=== PATIENT | female | born 1935 | race Native Hawaiian/Other Pacific Islander ===

== ENCOUNTER 2016-08-15 10:20 | Outpatient (CLI) | payer OTHER ==
[~2016-08-15 10:20] MED LIST: ALLO300T23 PO; LEVO0.1224 PO; LISI10TA11 PO; NIACIN ER1000 MG PO; TEMA15CA19 PO; TRIA75TA61 PO; XARELTO15 MG PO
== END 2016-08-15 20:09 | disposition home or self-care (01) ==
LOC: RAD 10:20
DX: M81.0 Age-related osteoporosis without current pathological fracture (principal)

== ENCOUNTER 2017-02-21 13:30 | Outpatient (CLI) | payer OTHER | END 2017-02-21 14:30 | disposition home or self-care (01) | LOC: RAD 13:30 | DX: M79.671 Pain in right foot (principal) ==

== ENCOUNTER 2017-10-03 10:30 | Outpatient (CLI) | payer OTHER | END 2017-10-03 22:55 | disposition home or self-care (01) | LOC: RAD 10:30 | DX: M25.571 Pain in right ankle and joints of right foot (principal) ==

== ENCOUNTER 2017-12-31 07:53 | Outpatient (CLI) | payer OTHER ==
[2017-12-31] MEDS ORDERED: ZOCOR80 MG OR (08:27)
[2017-12-31] MEDS ORDERED: AMLODIPINE BESYLATE PO (08:27)
[2017-12-31] MEDS ORDERED: TRAM50TA PO (08:29)
[2017-12-31] MEDS ORDERED: LISI5TAB10 PO (08:30)
[2017-12-31] MEDS ORDERED: NIACIN ER500 M1 PO (08:31)
[2017-12-31] MEDS ORDERED: DICL50TA PO (08:31)
[2017-12-31] MEDS ORDERED: LAMOTRIGINE5 MG PO (08:32)
[2017-12-31] MEDS ORDERED: UNITH DIRECT100 MCG PO (08:33)
[2017-12-31] MEDS ORDERED: WARF2TAB7 PO (08:33)
[2017-12-31] MEDS ORDERED: WARF3TAB12 PO (08:34)
[2017-12-31] MEDS ORDERED: VITAMIN D5000 UNIT OR (08:34)
== END 2017-12-31 08:06 | disposition short-term general hospital (02) ==
LOC: AMB 07:53
DX: M79.671 Pain in right foot (principal)
CPT/HCPCS: A0425; A0427

== ENCOUNTER 2017-12-31 08:16 | Emergency (ER) | payer OTHER ==
[~2017-12-31] VITALS: Ht 167.6 cm; Wt 74.8 kg
[2017-12-31 08:05] VITALS: TEMP 99.5
[2017-12-31] MEDS ORDERED: AMLODIPINE BESYLATE PO (08:27)
[2017-12-31] MEDS ORDERED: ZOCOR80 MG OR (08:27)
[2017-12-31] MEDS ORDERED: TRAM50TA PO (08:29)
[2017-12-31] MEDS ORDERED: LISI5TAB10 PO (08:30)
[2017-12-31] MEDS ORDERED: NIACIN ER500 M1 PO (08:31)
[2017-12-31] MEDS ORDERED: DICL50TA PO (08:31)
[2017-12-31] MEDS ORDERED: LAMOTRIGINE5 MG PO (08:32)
[2017-12-31] MEDS ORDERED: WARF2TAB7 PO (08:33)
[2017-12-31] MEDS ORDERED: UNITH DIRECT100 MCG PO (08:33)
[2017-12-31 08:34] LABS: PLATELET COUNT 225 K/uL (152-353)
[2017-12-31] MEDS ORDERED: VITAMIN D5000 UNIT OR (08:34)
[2017-12-31] MEDS ORDERED: WARF3TAB12 PO (08:34)
[2017-12-31 08:42] LABS: POTASSIUM 3.5 mmol/L (3.6-5.2)
[2017-12-31 09:45] VITALS: BP 143/74
== END 2017-12-31 09:45 | disposition home or self-care (01) ==
LOC: ED 08:16
DX: S82.301D Unspecified fracture of lower end of right tibia, subsequent encounter for closed fracture with routine healing (principal); S82.831D Other fracture of upper and lower end of right fibula, subsequent encounter for closed fracture with routine healing
CPT/HCPCS: 80053; 84550; 85027; 96374; 99283; J1885; L4350

== ENCOUNTER 2018-01-11 14:22 | Inpatient (IN) | payer OTHER ==
[~2018-01-11] VITALS: Ht 167.6 cm; Wt 75.4 kg
[~2018-01-11 14:22] MED LIST changes: +AMLODIPINE BESYLATE PO; +DICL50TA PO; +LAMOTRIGINE5 MG PO; +LISI5TAB10 PO; +NIACIN ER500 M1 PO; +TRAM50TA PO; +UNITH DIRECT100 MCG PO; +VITAMIN D5000 UNIT OR; +WARF2TAB7 PO; +WARF3TAB12 PO; +ZOCOR80 MG OR
--- NOTE | 2018-01-11 14:45 | NUR ---
PT ADMITTED TO THE FLOOR ROOM 1102. PT REQUIRES EXTENSIVE ASSIST WITH TRANSFER X3 PERSONS. PT HAS BOOT TO R LEG EXTENDING FROM BELOW KNEE TO FOOT. PT STATES SHE HAS WEAKNESS TO LEFT KNEE AND IS UNABLE TO PIVOT ON LEFT LEG. PT REQUIRES THE USE OF A BED HAYES OR BSC. PT DENIES ANY PAIN AT THIS TIME. PT CAN MOVE TOES UPON REQUEST TO JESSICA FEET AND FEELS TOUCH. NO EDEMA NOTED. LUNGS CLEAR UPON AUSCULATION. PT A&O X3. FAMILY AT BS. SR UP X2. 22G TO THE L FA STARTED X1 ATTEMPT. PT TOLERATED WELL. BED IN LOWEST POSITION AND CALL LIGHT IN REACH. WILL CONTINUE TO MONITOR
[2018-01-11] MEDS ORDERED: TRAM50TA PO (15:28)
[2018-01-11] MEDS ORDERED: CODEINE/APAP1 TA1 (15:30)
[2018-01-11] MEDS ORDERED: VITAMIN D32000 UNIT OR (15:30)
[2018-01-11 15:58] LABS: PLATELET COUNT 262 K/uL (152-353)
[2018-01-11 17:13] VITALS: BP 144/66; TEMP 98.7; Ht 167.6 cm; Wt 75.4 kg
[2018-01-11 20:00] VITALS: BP 180/72; TEMP 99
[2018-01-12] VITALS (7 sets, daily range): BP systolic 122–154; BP diastolic 60–65; TEMP 97.9–98.9
[2018-01-12 05:50] LABS: PLATELET COUNT 279 K/uL (152-353)
[2018-01-12 06:19] LABS: POTASSIUM 3.6 mmol/L (3.6-5.2)
[2018-01-12 06:47] LABS: PARTIAL THROMBOPLASTIN TIME 36.7 SECONDS (24.5-33.6)
[2018-01-13 04:00] VITALS: BP 118/43; TEMP 98
[2018-01-13 05:48] LABS: PLATELET COUNT 259 K/uL (152-353)
[2018-01-13 06:32] LABS: POTASSIUM 3.4 mmol/L (3.6-5.2)
[2018-01-13 08:00] VITALS: BP 123/67; TEMP 98.1
[2018-01-13 12:00] VITALS: BP 132/60; TEMP 98.3
[2018-01-13 16:00] VITALS: BP 136/71; TEMP 98.8
[2018-01-13 20:01] VITALS: BP 130/64; TEMP 99.1
[2018-01-14] VITALS (7 sets, daily range): BP systolic 107–138; BP diastolic 47–69; TEMP 98–99
[2018-01-14 05:41] LABS: PLATELET COUNT 284 K/uL (152-353)
[2018-01-14 05:56] LABS: POTASSIUM 3.6 mmol/L (3.6-5.2)
[2018-01-15 04:00] VITALS: BP 131/65; TEMP 98.3
[2018-01-15 05:48] LABS: PLATELET COUNT 278 K/uL (152-353)
[2018-01-15 06:06] LABS: POTASSIUM 3.7 mmol/L (3.6-5.2)
[2018-01-15 07:19] VITALS: BP 158/71; TEMP 98.1
[2018-01-15 11:49] VITALS: BP 137/68; TEMP 98.6
== END 2018-01-15 14:59 | disposition swing bed (61) | DRG 690 ==
LOC: MED/SURG 14:22
PROVIDERS: Emergency Medicine; ADMIT Nurse Practitioner Family
DX: N39.0 Urinary tract infection, site not specified (principal); R53.1 Weakness; I10 Essential (primary) hypertension; Z79.01 Long term (current) use of anticoagulants; Z95.0 Presence of cardiac pacemaker; I48.91 Unspecified atrial fibrillation; M25.462 Effusion, left knee; Z91.81 History of falling; Z86.73 Personal history of transient ischemic attack (TIA), and cerebral infarction without residual deficits; M84.361D Stress fracture, right tibia, subsequent encounter for fracture with routine healing; E03.8 Other specified hypothyroidism; M15.9 Polyosteoarthritis, unspecified; M85.88 Other specified disorders of bone density and structure, other site; E87.6 Hypokalemia; K59.09 Other constipation
CPT/HCPCS: 36415; 80053; 81000; 82550; 82553; 83615; 84484; 85027; 85610; 85730; 87086; 87088; 93005; 94760; J0696

== ENCOUNTER 2018-01-15 15:00 | Inpatient (IN) | payer OTHER ==
[~2018-01-15] VITALS: Ht 167.6 cm; Wt 76.4 kg
[~2018-01-15 15:00] MED LIST changes: +CODEINE/APAP1 TA1; +VITAMIN D32000 UNIT OR
[2018-01-16 01:12] VITALS: BP 145/66; TEMP 98; Ht 167.6 cm; Wt 76.4 kg
[2018-01-16 08:01] VITALS: BP 126/61; TEMP 97.7
[2018-01-16 20:00] VITALS: BP 99/64; TEMP 98.6
[2018-01-17 08:32] VITALS: BP 126/67; TEMP 98
[2018-01-17 20:00] VITALS: BP 147/61; TEMP 97.7
[2018-01-18 08:00] VITALS: BP 174/77; TEMP 98
[2018-01-18 20:00] VITALS: BP 198/86; TEMP 98.2
[2018-01-19 08:00] VITALS: BP 141/64; TEMP 98.1
[2018-01-19 20:00] VITALS: BP 136/62; TEMP 98
[2018-01-20 07:41] VITALS: BP 133/68; TEMP 98
[2018-01-20 20:00] VITALS: BP 126/66; TEMP 98.2
[2018-01-21 07:47] VITALS: BP 128/63; TEMP 98.5
[2018-01-21 20:00] VITALS: BP 112/57; TEMP 98
[2018-01-22 06:10] LABS: POTASSIUM 3.7 mmol/L (3.6-5.2)
[2018-01-22 06:21] LABS: PARTIAL THROMBOPLASTIN TIME 31.5 SECONDS (24.5-33.6)
[2018-01-22 06:23] LABS: PLATELET COUNT 250 K/uL (152-353)
[2018-01-22 09:29] VITALS: BP 152/76; TEMP 98
[2018-01-22 19:16] VITALS: BP 151/70; TEMP 99.1
[2018-01-23 08:00] VITALS: BP 129/53; TEMP 97.8
[2018-01-23 20:11] VITALS: BP 126/75; TEMP 98.9
[2018-01-24 07:52] VITALS: BP 141/65; TEMP 98.8
[2018-01-24 20:00] VITALS: BP 143/70; TEMP 98.2
[2018-01-25 19:43] VITALS: BP 120/64; TEMP 98.3
[2018-01-26 20:00] VITALS: BP 122/57; TEMP 98.6
[2018-01-27 08:04] VITALS: BP 162/60; TEMP 98.1
[2018-01-27 19:55] VITALS: BP 145/69; TEMP 98.6
[2018-01-28 08:00] VITALS: BP 134/54; TEMP 98.4
[2018-01-28 19:58] VITALS: BP 120/57; TEMP 98.8
[2018-01-29 05:35] LABS: PLATELET COUNT 224 K/uL (152-353)
[2018-01-29 05:52] LABS: POTASSIUM 3.5 mmol/L (3.6-5.2)
[2018-01-29 06:02] LABS: PARTIAL THROMBOPLASTIN TIME 30.6 SECONDS (24.5-33.6)
[2018-01-29 07:15] VITALS: BP 131/76; TEMP 98
[2018-01-29 20:00] VITALS: BP 172/79; TEMP 98.5
[2018-01-30 20:00] VITALS: BP 136/68; TEMP 98
[2018-01-31 08:00] VITALS: BP 147/71; TEMP 98.1
[2018-01-31 20:00] VITALS: BP 125/53; TEMP 98.1
[2018-02-01 07:43] VITALS: BP 133/70; TEMP 98
[2018-02-01 20:13] VITALS: BP 122/63; TEMP 99
[2018-02-02 08:13] VITALS: BP 165/76; TEMP 97.6
[2018-02-02 19:35] VITALS: BP 116/64; TEMP 98.1
[2018-02-03 07:52] VITALS: BP 141/70; TEMP 98.4
[2018-02-03 20:00] VITALS: BP 124/72; TEMP 98.1
[2018-02-04 08:00] VITALS: BP 124/63; TEMP 98.2
[2018-02-04 19:47] VITALS: BP 128/65; TEMP 98.3
[2018-02-05 05:41] LABS: PLATELET COUNT 223 K/uL (152-353)
[2018-02-05 06:00] LABS: POTASSIUM 3.8 mmol/L (3.6-5.2)
[2018-02-05 06:36] LABS: PARTIAL THROMBOPLASTIN TIME 31.1 SECONDS (24.5-33.6)
[2018-02-05 08:00] VITALS: BP 145/71; TEMP 98.1
[2018-02-05 20:07] VITALS: BP 132/67; TEMP 98.2
[2018-02-06 08:00] VITALS: BP 142/72; TEMP 98
[2018-02-06 20:00] VITALS: BP 135/71; TEMP 98
[2018-02-07 08:00] VITALS: BP 143/69; TEMP 97.6
[2018-02-07 20:00] VITALS: BP 124/62; TEMP 98.2
[2018-02-08 08:00] VITALS: BP 112/73; TEMP 97.9
[2018-02-08 20:00] VITALS: BP 136/66; TEMP 98.7
[2018-02-09 08:04] VITALS: BP 125/62; TEMP 98.1
== END 2018-02-09 17:40 | disposition home or self-care (01) | DRG 556 ==
LOC: MED/SURG 15:00
PROVIDERS: ADMIT Family Medicine
DX: M62.81 Muscle weakness (generalized) (principal); S82.201A Unspecified fracture of shaft of right tibia, initial encounter for closed fracture; I10 Essential (primary) hypertension; Z91.81 History of falling; Z79.01 Long term (current) use of anticoagulants; Z95.0 Presence of cardiac pacemaker; I48.91 Unspecified atrial fibrillation; M15.8 Other polyosteoarthritis
CPT/HCPCS: 36415; 80053; 85027; 85610; 85730; 94760

== ENCOUNTER 2018-02-19 13:19 | Outpatient (CLI) | payer OTHER | END 2018-02-19 21:17 | disposition home or self-care (01) | LOC: RAD 13:19 | DX: M79.604 Pain in right leg (principal) ==

== ENCOUNTER 2018-03-24 10:22 | Outpatient (CLI) | payer OTHER | END 2018-03-24 19:04 | disposition home or self-care (01) | LOC: RAD 10:22 | DX: M25.561 Pain in right knee (principal); M79.604 Pain in right leg ==

== ENCOUNTER 2019-04-20 08:28 | Outpatient (CLI) | payer OTHER | END 2019-04-20 08:40 | disposition short-term general hospital (02) | LOC: AMB 08:28 | DX: R06.02 Shortness of breath (principal); R42 Dizziness and giddiness; R11.0 Nausea; R53.1 Weakness | CPT/HCPCS: A0425; A0427 ==

== ENCOUNTER 2019-04-20 08:44 | Emergency (ER) | payer OTHER ==
[~2019-04-20] VITALS: Ht 167.6 cm; Wt 76.2 kg
[2019-04-20 08:50] VITALS: TEMP 97.9
[2019-04-20 09:33] LABS: PLATELET COUNT 245 K/uL (152-353)
[2019-04-20 09:57] LABS: POTASSIUM 4.1 mmol/L (3.6-5.2)
[2019-04-20 10:23] VITALS: BP 155/82
== END 2019-04-20 10:25 | disposition home or self-care (01) ==
LOC: ED 08:44
PROVIDERS: Emergency Medicine Emergency Medical Services
DX: H81.13 Benign paroxysmal vertigo, bilateral (principal); R82.998 Other abnormal findings in urine; I67.82 Cerebral ischemia
CPT/HCPCS: 80053; 81000; 85027; 87077; 87086; 87088; 87186; 93005; 99283

== ENCOUNTER 2019-09-17 18:15 | Outpatient (CLI) | payer OTHER | END 2019-09-17 19:09 | disposition home or self-care (01) | LOC: LAB 18:15 | DX: N30.00 Acute cystitis without hematuria (principal) | CPT/HCPCS: 87086; 87088 ==

== ENCOUNTER 2020-09-09 13:02 | Outpatient (CLI) | payer OTHER | END 2020-09-09 21:13 | disposition home or self-care (01) | LOC: INF 13:02 | PROVIDERS: ATTEND Internal Medicine | DX: Z23 Encounter for immunization (principal) | CPT/HCPCS: 96372 ==

== ENCOUNTER 2020-10-06 14:38 | Outpatient (CLI) | payer OTHER | END 2020-10-06 21:32 | disposition home or self-care (01) | LOC: INF 14:38 | PROVIDERS: ATTEND Internal Medicine | DX: Z23 Encounter for immunization (principal) | CPT/HCPCS: 96372 ==